=== PATIENT | female | born 1995 | race Hispanic/Latino ===

== ENCOUNTER 2017-06-28 11:40 | Emergency (ER) | payer MEDICAID ==
[2017-06-28 13:28] LABS: Bilirubin,Urine NEG (Negative); Blood,Urine NEG (Negative); Color,Urine Yellow (Yellow); Mucus,Urine 3+ /HPF; Nitrite,Urine NEG (Negative); Protein,Urine <15 mg/dL mg/dL (Negative)
[2017-06-28 14:05] LABS: Basophils # (Auto) 0.1 K/mm3 (0.0-0.1); Basophils % (Auto) 0.8 % (0.0-1.8); Eosinophils # (Auto) 0.1 K/mm3 (0.0-0.4); Eosinophils % (Auto) 1.9 % (0.0-4.3); Hematocrit 38.6 % (30.3-42.9); Hemoglobin 13.2 gm/dl (10.1-14.3); Lymphocytes % (Auto) 25.7 % (13.4-35.0); Mean Corpuscular HGB Conc 34 % (30-34); Mean Corpuscular Hemoglobin 31 pg (28-32); Mean Corpuscular Volume 89 fl (79-97); Monocytes # (Auto) 0.4 K/mm3 (0.0-0.8); Monocytes % (Auto) 5.4 % (0.0-7.3); Platelet Count 231 K/mm3 (140-440); Red Blood Count 4.33 M/mm3 (3.65-5.03); Red Cell Distribution Width 15.6 % (13.2-15.2)
[2017-06-28 14:20] LABS: Alanine Aminotransferase 7 units/L (7-56); Albumin 3.6 g/dL (3.9-5); BUN/Creatinine Ratio 18; Blood Urea Nitrogen 9 mg/dL (7-17); Calcium 8.9 mg/dL (8.4-10.2); Hemolysis Index 13
--- NOTE | 2017-06-29 04:36 | Emergency Department Report ---
HPI - General Chief Complaint: Abdominal Pain Time Seen by Provider: 06/29/17 04:18 - HPI HPI: 21-year-old female presents to the emergency department with complaint of lower abdominal cramping that started earlier today, Wednesday, and the patient was concerned as she is . Her last menstrual cycle was early March or early February. She has taken multiple home tests that have been positive. She has an appointment coming up in the next day or so with a new [employer], Dr. Kamala Contreras. She took one dose of Tylenol earlier for her symptoms without much relief. She denies any dysuria, vaginal bleeding or discharge, fever, back pain. However the patient has been having some nausea and vomiting. With this she is with 4 previous miscarriages. No recent travel or sick contacts at home. She denies any medical history otherwise. ED Past Medical Hx - Past Medical History Previous Medical History?: Yes Hx Hypertension: No Hx Congestive Heart Failure: No Hx Diabetes: No Hx Deep Vein Thrombosis: No Hx Renal Disease: No Hx Sickle Cell Disease: No Hx Seizures: No Hx Asthma: Yes Hx COPD: No Hx HIV: No - Surgical History Past Surgical History?: Yes Additional Surgical History: tonsils - Social History Smoking Status: Former Smoker Substance Use Type: None - Medications Home Medications: Home Medications Medication Instructions Recorded Confirmed Last Taken Type Albuterol Sulfate [Proair Hfa] 8.5 gm PO PRN 08/16/14 08/16/14 1 Month Ago History ~07/19/14 Pnv with Ca,No.72/Iron/FA 1 tab PO DAILY 08/16/14 08/16/14 1 Week Ago History [ Plus Tablet] ~08/09/14 Lidocaine/Prilocaine [Emla Cream] 5 gm TP ONCE #1 cream..g. 08/18/14 Unknown Rx ED Review of Systems ROS: Stated complaint: ABD CRAMPS Other details as noted in HPI Comment: All other systems reviewed and negative Constitutional: denies: chills, fever Eyes: denies: eye pain, eye discharge, vision change ENT: denies: ear pain, throat pain Respiratory: denies: cough, shortness of breath, wheezing Cardiovascular: denies: chest pain, palpitations Gastrointestinal: abdominal pain. denies: vomiting Genitourinary: denies: urgency, dysuria, discharge Musculoskeletal: denies: back pain, joint swelling, arthralgia Skin: denies: rash, lesions Neurological: denies: headache, weakness, paresthesias Physical Exam - Physical Exam Vital Signs: Vital Signs 06/28/17 06/29/17 12:35 03:32 Temperature 98 F 97.9 F Pulse Rate 71 81 Respiratory 16 18 Rate Blood Pressure 111/66 110/62 O2 Sat by Pulse 100 100 Oximetry Physical Exam: GENERAL: The patient is well-developed well-nourished. HENT: Normocephalic. Atraumatic. Patient has moist mucous membranes. EYES: Extraocular motions are intact. Pupils equal reactive to light bilaterally. NECK: Supple. Trachea is midline. CHEST/LUNGS: Clear to auscultation. There is no respiratory distress noted. HEART/CARDIOVASCULAR: Regular. There is no tachycardia. There is no murmur. ABDOMEN: Abdomen is soft, nontender. Patient has normal bowel sounds. There is no abdominal distention. SKIN: Skin is warm and dry. NEURO: The patient is awake, alert, and oriented. The patient is cooperative. The patient has no focal neurologic deficits. The patient has normal speech and gait. MUSCULOSKELETAL: There is no tenderness or deformity. There is no limitation range of motion. There is no evidence of acute injury. ED Course Vital Signs 06/28/17 06/29/17 12:35 03:32 Temperature 98 F 97.9 F Pulse Rate 71 81 Respiratory 16 18 Rate Blood Pressure 111/66 110/62 O2 Sat by Pulse 100 100 Oximetry ED Medical Decision Making - Lab Data Result diagrams: 06/28/17 13:12 06/28/17 13:12 - Radiology Data Radiology results: report reviewed EXAM: US OB lt; = 14 WEEKS FETUS HISTORY: abd cramping TECHNIQUE: Transabdominal imaging was obtained of the pelvis including Doppler interrogation of the uterus and adnexa. There are no previous studies available for comparison. FINDINGS: The uterus is anteverted measuring 10.3 cm x 7.9 cm x 9.1 cm. Within the uterus is a gestational sac containing a pole with an estimated ultrasound age of 12 weeks 0 days. The heart is 174 BPM. Body/limb movements were noted. Adjacent to the gestational sac is a subchorionic hemorrhage measuring 4 cm x 2.6 cm x 3.8 cm. The cervix is closed. The placenta is fundal in position. There is no free fluid identified. The right ovary measures 2.5 cm x 1.6 cm x 1.6 cm. Within the right ovary is a small cyst measuring 1.2 cm in diameter most likely representing corpus luteum cyst. The blood flow is normal to the right ovary. The left ovary is normal size contour blood flow and echotexture measuring 3.3 cm x 2 cm x 2.3 cm. IMPRESSION: Single viable IUP, 12 weeks 0 days. heart is 174 BPM. Moderate to large subchorionic hemorrhage measuring 4 cm x 2.6 cm x 3.8 cm. No free fluid identified. Transcribed By: RB Dictated By: SILVANO BURGOS MD Electronically Authenticated By: SILVANO BURGOS MD Signed Date/Time: 06/29/17 0059 - Medical Decision Making Patient presents with some abdominal cramping without any vaginal bleeding while . Ultrasound shows live intrauterine about 12 weeks with a moderate to large size subchorionic bleed. Despite the complaint of some nausea and vomiting throughout the first trimester, there are no lab or clinical signs of significant dehydration. No ketonuria. Urinalysis also does not show any signs of urinary tract infection. Vital signs stable including being afebrile. She has an appointment already in a few hours this morning with her new [employer]. She will remain on her vitamins. She will return to the ER with any development of vaginal bleeding, worsening of her abdominal discomfort or any acute distress. - Differential Diagnosis , miscarriage, fibroids, UTI Critical Care Time: No Critical care attestation.: If time is entered above; I have spent that time in minutes in the direct care of this critically ill patient, excluding procedure time. ED Disposition Clinical Impression: Abdominal cramping Qualifiers: Weeks of gestation: 12 weeks Qualified Code(s): Z3A.12 - 12 weeks gestation of Subchorionic hematoma in first trimester Qualifiers: Fetus number: single or unspecified fetus Qualified Code(s): O41.8X10 - Other specified disorders of amniotic fluid and membranes, first trimester, not applicable or unspecified; O46.8X1 - Other antepartum hemorrhage, first trimester; O46.8X1 - Other antepartum hemorrhage, first trimester Disposition: DC-01 TO HOME OR SELFCARE Is pt being admited?: No Condition: Stable Instructions: (ED) Additional Instructions: Please follow-up with your [employer] later today as previously planned. Stay on your vitamins. Return to the emergency Department with any worsening of your symptoms, development of vaginal bleeding, or any acute distress. You can take Tylenol every 4 hours, using weight-based dosing, as needed for any discomfort. Besides this and your vitamins, do not take any medications that are not prescribed by a physician. Referrals: ELIAS CONTRERAS MD [Staff Physician] - 06/29/17 Time of Disposition: 05:11
[2017-06-29] MEDS ORDERED: REGLAN PO ONE (04:55)
[2017-06-29] MEDS ORDERED: TYLENOL PO ONE (04:55)
[2017-06-29 05:01] VITALS: BP 106/62
--- NOTE | 2017-06-29 05:01 | Ultrasound Report ---
FINAL REPORT EXAM: US OB < = 14 WEEKS FETUS HISTORY: abd cramping TECHNIQUE: Transabdominal imaging was obtained of the pelvis including Doppler interrogation of the uterus and adnexa. There are no previous studies available for comparison. FINDINGS: The uterus is anteverted measuring 10.3 cm x 7.9 cm x 9.1 cm. Within the uterus is a gestational sac containing a pole with an estimated ultrasound age of 12 weeks 0 days. The heart is 174 BPM. Body/limb movements were noted. Adjacent to the gestational sac is a subchorionic hemorrhage measuring 4 cm x 2.6 cm x 3.8 cm. The cervix is closed. The placenta is fundal in position. There is no free fluid identified. The right ovary measures 2.5 cm x 1.6 cm x 1.6 cm. Within the right ovary is a small cyst measuring 1.2 cm in diameter most likely representing corpus luteum cyst. The blood flow is normal to the right ovary. The left ovary is normal size contour blood flow and echotexture measuring 3.3 cm x 2 cm x 2.3 cm. IMPRESSION: Single viable IUP, 12 weeks 0 days. heart is 174 BPM. Moderate to large subchorionic hemorrhage measuring 4 cm x 2.6 cm x 3.8 cm. No free fluid identified.
== END 2017-06-29 05:15 | disposition home or self-care (01) ==
LOC: ED 11:40
DX: O41.8X10 Other specified disorders of amniotic fluid and membranes, first trimester, not applicable or unspecified (principal); O46.8X1 Other antepartum hemorrhage, first trimester; Z3A.12 12 weeks gestation of pregnancy; J45.909 Unspecified asthma, uncomplicated
CPT/HCPCS: 36415; 76801; 80053; 81001; 84703; 85025

== ENCOUNTER 2018-01-03 15:05 | Outpatient (CLI) | payer MEDICAID ==
[2018-01-03 15:39] VITALS: BP 110/61
== END 2018-01-03 16:40 | disposition home or self-care (01) ==
LOC: TRG 15:05
PROVIDERS: ATTEND Obstetrics & Gynecology
DX: O47.1 False labor at or after 37 completed weeks of gestation (principal); O26.893 Other specified pregnancy related conditions, third trimester; J45.909 Unspecified asthma, uncomplicated; Z3A.39 39 weeks gestation of pregnancy; Z87.891 Personal history of nicotine dependence; Z91.013 Allergy to seafood
CPT/HCPCS: 59025

== ENCOUNTER 2018-01-10 13:30 | Outpatient (CLI) | payer MEDICAID ==
[2018-01-10 13:51] VITALS: BP 114/69
== END 2018-01-10 16:27 | disposition home or self-care (01) ==
LOC: TRG 13:30
PROVIDERS: ATTEND Obstetrics & Gynecology
DX: O47.1 False labor at or after 37 completed weeks of gestation (principal); Z3A.40 40 weeks gestation of pregnancy; Z91.013 Allergy to seafood; Z87.891 Personal history of nicotine dependence
CPT/HCPCS: 76816; 76819